=== PATIENT | male | born 1995 | race Caucasian/White ===

== ENCOUNTER 2018-05-23 16:14 | Emergency (ER) | payer MEDICARE, SELFPAY ==
[2018-05-23 16:14] VITALS: BP 119/72; PULSE 73; RESP 14; TEMP 37; O2SAT 100; BMI 17.3
--- NOTE | 2018-05-23 16:41 | ED.VISSUMM ---
- ER Visit Summary Date of Service: 05/23/18 Chief Complaint: Right penile abscess History of Present Illness: The patient is a 22 M history of anxiety. Patient has a small bump on his staff. He is concerned he may be an ingrown hair and even MRSA because his brother had MRSA. Physical Examination: Well-appearing young male. Vital signs stable afebrile. HEENT exam unremarkable. Neck nontender. Lungs clear to auscultation bilaterally. Heart regular rhythm no murmur. Abdomen soft nontender. Patient is moving all 4 extremities. They are neurovascularly intact. External exam is unremarkable with no inguinal lymphadenopathy. No ulcerations. He has a small early abscess to his right proximal penile shaft. The size of a pencil eraser. Currently it is not fluctuant. There is nothing to drain. There is no lymphangitic streaking. There is no cellulitis. Test Results: None Emergency Department Course and Treatment: Treated with Bactrim and Keflex and follow-up with his PCP. Treatment Plan: Bactrim twice daily. Keflex 4 times daily both for 1 week. Warm compresses. Disposition: Discharge Impression: Acute penile shaft abscess This note was generated with [employer] dictation software. It may contain incorrect words, spelling, and punctuation that were not noted in review of the chart prior to signing ED Disposition - Plan for ED Patient: Chief Complaint: Wound Referrals: Kevin Subramanian MD [Primary Care Provider] -
--- NOTE | 2018-05-23 16:43 | ED.DEP ---
ED Disposition - Plan for ED Patient: Disposition: Home or Assisted Living Chief Complaint: Wound Instructions: ED Staph Infec Abx Tx Only Prescriptions: Cephalexin [Keflex] 500 mg PO Q6 #30 cap Smz/Tmp Ds [Bactrim Ds] 1 tab PO BID #14 tab Referrals: Kevin Subramanian MD [Primary Care Provider] - 1 Week if not improving Additional Instructions: Warm compresses to the area Bactrim 1 pill twice a day and Keflex 1 pill 4 times a day till gone to treat the infection. Return if getting larger and not improving.
[2018-05-23 16:58] VITALS: BP 124/77; PULSE 68; RESP 15; O2SAT 98
== END 2018-05-23 16:58 | disposition home or self-care (01) ==
PROVIDERS: Emergency Provider Emergency Medicine; Family Provider Pediatrics; PCP Pediatrics
DX: N48.21 Abscess of corpus cavernosum and penis (principal); F41.9 Anxiety disorder, unspecified; Z79.899 Other long term (current) drug therapy
CPT/HCPCS: 99282

== ENCOUNTER 2018-12-04 15:11 | Emergency (ER) | payer MEDICARE, SELFPAY ==
[2018-12-04 15:12] VITALS: BP 114/77; PULSE 79; RESP 16; TEMP 36.8; O2SAT 99; BMI 36.4
--- NOTE | 2018-12-04 15:36 | ED.VISSUMM ---
- ER Visit Summary Date of Service: 12/04/18 Chief Complaint: Sore throat History of Present Illness: The patient is a 23 M who has several complaints today but his main one is a sore throat. This for days. He states he is concerned he has thrush because he believes his tongue is white. He notes a subjective fever on day 1 of the illness. Dad states it was low-grade. Denies any cough or rhinorrhea. He notes a very slight cough. He states that last night he had some diarrhea but this was after his mom gave him 3 500 mg tablets of amoxicillin. No diarrhea since. No urinary symptoms. Denies any rashes. He notes anxiety which is chronic for him which he is treated. He also notes a pop in his right knee that he has had for many years when he goes from a crouching position to a standing. Physical Examination: Afebrile vital signs stable Gen: Well-nourished well-developed Head: Normocephalic atraumatic Eyes: Perrl EOMI ENT: TMs clear no rhinorrhea moist mucous membranes there are several small circular erythematous lesions on the soft palate consistent with a stomatitis/herpangina. Neck: Supple no lymphadenopathy no JVD nontender CVS: Regular rate rhythm no murmurs normal S1-S2 Respiratory: No distress clear to auscultation bilaterally chest nontender Abdomen: Soft nontender nondistended normal bowel sounds no masses Back: Nontender Extremity: Right knee shows a tracking disorder consistent with patellofemoral syndrome Skin: Normal color no rash Neuro: alert orientated ?3 CN II-XII intact normal strength sensation reflexes gait cerebellar Psych: Normal affect normal mood Emergency Department Course and Treatment: Patient and father were advised that this is a viral illness and self-limited. We recommend stretching for the knee pain if not improved follow-up with physical therapy/primary care. Impression: 1. Stomatitis 2. Patellofemoral syndrome This note was generated with [employer] dictation software. It may contain incorrect words, spelling, and punctuation that were not noted in review of the chart prior to signing ED Disposition - Plan for ED Patient: Disposition: Home or Assisted Living Instructions: STOMATITIS (Child) Referrals: Kevin Subramanian MD [Primary Care Provider] - 1 Week if not improving
== END 2018-12-04 16:03 | disposition home or self-care (01) ==
LOC: ED 15:59
PROVIDERS: Emergency Provider Emergency Medicine
DX: B08.5 Enteroviral vesicular pharyngitis (principal); M22.2X1 Patellofemoral disorders, right knee; R05 Cough; F41.9 Anxiety disorder, unspecified; Z79.899 Other long term (current) drug therapy
CPT/HCPCS: 99282